=== PATIENT | male | born 1965 | race Caucasian/White ===

== ENCOUNTER 2021-06-08 14:32 | Emergency (ER) | payer OTHER, SELFPAY ==
[2021-06-08 14:32] VITALS: BP 128/73; PULSE 68; RESP 16; TEMP 35.9; O2SAT 99; BMI 23.3
--- NOTE | 2021-06-08 15:31 | RAD_ITS ---
STUDY: X-RAY RIGHT FOOT, FIFTH TOE REASON FOR EXAM: Male, 55 years old. EQUIPMENT FELL ON TOE AT WORK TECHNIQUE: 3 view(s) of the toe were obtained. COMPARISON: None. FINDINGS: Normal visualized metatarsus. Normal metatarsophalangeal (M.T.P) joint. Normal interphalangeal joints. Nondisplaced fracture along the distal aspect of the middle phalanx of the fifth toe. Soft tissue swelling. RAD/Toe(s) Min 2 Views IMPRESSION: Nondisplaced fracture along the distal aspect of the middle phalanx of the fifth toe. Electronically Signed: Damon Gracia MD at 15:53 EDT , Service support ,
--- NOTE | 2021-06-08 16:51 | EX.ED.DYSGE1 ---
HPI History of Present Illness Chief Complaint: Lower Extremity Injury Narrative Narrative: 55-year-old male presenting with right fifth toe pain. He states he was at work and a shelf fell on his toe. He is ambulatory with antalgic gait. He denies numbness or tingling. He admits to some bruising of the right fifth toe. Patient states that the pain is not exquisite. He denies other injury at this time. PFSH PFSH Allergy/AdvReac Type Severity Reaction Status Date / Time aspirin [ASA] AdvReac Upset Verified 06/08/21 16:24 Stomach Social History Smoking Status: Current some day smoker tobacco type: cigarettes ROS ROS ED Constitutional Constitutional ED: Denies chills or fever(s) Eyes Eyes: Denies blurry vision or diplopia ENT ENT ED: Denies rhinorrhea or sore throat Cardiovascular Cardiovascular: Denies chest pain or palpitations Respiratory/Chest Respiratory/Chest: Denies cough or dyspnea Gastrointestinal Gastrointestinal: Denies abdominal pain or nausea Genitourinary Genitourinary ED: Denies dysuria or hematuria Musculoskeletal Musculoskeletal: Denies arthralgias or myalgias Integumentary Reports other Details: Contusion to right fifth toe with bruising EXAM Physical Exam Const Vital Signs: 06/08/21 14:32 Temperature 96.7 F L Temperature Source Temporal Pulse Rate 68 Respiratory Rate 16 Blood Pressure 128/73 H Blood Pressure Mean 91 Pulse Ox 99 Oxygen Delivery Method Room Air Positive well nourished General Appearance ED: NAD HEENT Reports moist mucous membranes Negative for trauma Resp normal respiratory effort and clear to auscultation bilaterally Cardio regular rate and regular rhythm Extremity Extremity Narrative: Bruising and swelling to the right fifth toe. Right foot is neurovascular intact with cap refill to all 5 toes. No obvious deformity noted. Neuro oriented x3 Sensorium / Orientation: alert Psych mental status grossly normal Skin Skin Narrative: As described above MDM MDM MDM Narrative Medical decision making narrative: Patient presenting with right fifth toe pain. I did obtain imaging of the right foot which shows a nondisplaced fracture of the fifth toe middle phalanx. The radiologist does agree. Patient states he does not have a lot of pain. He can take ibuprofen and Tylenol [id number] at home. He is given work restrictions for work as this is Worker's Comp. Patient was placed in a postop shoe. Patient does not require crutches. Impression: 1. Right fifth toe fracture Radiography Diagnostic Testing: Radiology Impression Toe X-Ray 06/08/21 15:31 IMPRESSION: Nondisplaced fracture along the distal aspect of the middle phalanx of the fifth toe. Electronically Signed: Damon Gracia MD at 15:53 EDT , Service support , Discharge Plan Triage Chief Complaint: Lower Extremity Injury ED Provider: Elia Martinez Dx/Rx/DC Orders Instructions: ED Fracture, Toe, Closed Primary Care Provider: Care Physician,No Primary Referrals: Clinic,NOW [NON-STAFF] - As soon as possible Disposition Disposition: Home, Self Care Discharge Date/Time: 06/08/21 17:06
== END 2021-06-08 17:06 | disposition home or self-care (01) ==
LOC: ED 16:52
PROVIDERS: Emergency Provider Student in an Organized Health Care Education/Training Program
DX: S92.501A Displaced unspecified fracture of right lesser toe(s), initial encounter for closed fracture (principal); F17.210 Nicotine dependence, cigarettes, uncomplicated; X58.XXXA Exposure to other specified factors, initial encounter
CPT/HCPCS: 73660; 99283